=== PATIENT | male | born 1985 ===

== ENCOUNTER 2016-11-21 16:11 | Emergency (ER) | payer OTHER ==
[2016-11-21 16:30] VITALS: PULSE 78; TEMP 98.3
[2016-11-21] MEDS ORDERED: Alum-Mag Hydrox-Simethicone Susp (30 mL) PO STA (17:05)
--- NOTE | 2016-11-21 17:14 | ED PDOC ---
HPI: Abdomen Chief Complaint (Provider): Abdominal Pain History Per: Patient History/Exam Limitations: no limitations Onset/Duration Of Symptoms: Days (1) Outside of [place] travel?: No Current Symptoms Are (Timing): Still Present Severity: Moderate Pain Scale Rating Of: 6 Location Of Pain/Discomfort: Epigastric Quality Of Discomfort: Burning Associated Symptoms: denies: Fever, Chills, Nausea, Vomiting, Diarrhea, Loss Of Appetite, Back Pain, Chest Pain, Constipation, Urinary Symptoms Exacerbating Factors: Food Alleviating Factors: None Last Bowel Movement: Today <Florian Schmidt - Last Filed: 11/21/16 19:30> <Jesica Mak - Last Filed: 11/22/16 17:43> Time Seen by Provider: 11/21/16 16:50 Chief Complaint (Nursing): Abdominal Pain Additional Complaint(s): 31 year old male with no medical history presents to the ED with complaints of epigastric pain. Patient states epigastric pain present since 2 am this morning. Patient states ate calzone and drank a few beers last night. Patient states typically drinks 2-3 beers daily though told nurse 6 pack 3 x/week. Patient took maddie-selzter this morning, without relief. Had chicken soup earlier today, worsened pain. Patient denies fever, chills, diarrhea, nausea, vomiting, back pain, urinary symptoms, changes in diet, recent illness, headache , chest pain, sob, or recent travel. No radiation of pain. Smokes 1/2 ppd. PMD: None (Florian Schmidt) Supervising Attending Note - Supervising Attending Note The Documented history was done by the: [employer]ician [employer] Paralegal, Attending Physician The documented physical exam was done by the: [employer] Paralegal, Attending Physician - Attestation: I have personally seen and examined this patient.: Yes I have fully participated in the care of the patient.: Yes I have reviewed all pertinent clinical information: Yes <Jesica Mak - Last Filed: 11/22/16 17:43> Past Medical History Reviewed: Historical Data, Nursing Documentation, Vital Signs - Medical History PMH: No Chronic Diseases - Surgical History Surgical History: No Surg Hx - Family History Family History: States: No Known Family Hx <Florian Schmidt - Last Filed: 11/21/16 19:30> <MakJesica Lisa - Last Filed: 11/22/16 17:43> Vital Signs: Last Vital Signs Temp 98.3 F 11/21/16 16:28 Pulse 78 11/21/16 16:28 Resp 18 11/21/16 19:06 BP 123/62 11/21/16 19:06 Pulse Ox 100 11/21/16 19:31 - Home Medications Home Medications: Ambulatory Orders Medication Instructions Recorded Cyclobenzaprine [Cyclobenzaprine 10 mg PO HS #10 tab 03/10/16 HCl] Naproxen [Naprosyn] 1 tab PO BID PRN #25 tab 03/10/16 Calcium Carbonate/Simethicone 1 each PO TID PRN #20 tab.chew 11/21/16 [Maalox Advanced Tab Chew] Famotidine [Pepcid] 20 mg PO DAILY #10 tab 11/21/16 - Allergies Allergies/Adverse Reactions: Allergies Allergy/AdvReac Type Severity Reaction Status Date / Time No Known Allergies Allergy Verified 11/21/16 16:28 Review of Systems ROS Statement: Except As Marked, All Systems Reviewed And Found Negative Gastrointestinal: Positive for: Abdominal Pain <Florian Schmidt - Last Filed: 11/21/16 19:30> Physical Exam - Reviewed Nursing Documentation Reviewed: Yes Vital Signs Reviewed: Yes - Physical Exam Appears: Positive for: Well, Non-toxic, No Acute Distress Head Exam: Positive for: ATRAUMATIC, NORMAL INSPECTION, NORMOCEPHALIC Skin: Positive for: Normal Color, Warm, Dry Eye Exam: Positive for: Normal appearance, EOMI, PERRL Neck: Positive for: Normal, Painless ROM, Supple Cardiovascular/Chest: Positive for: Regular Rate, Rhythm Respiratory: Positive for: Normal Breath Sounds Gastrointestinal/Abdominal: Positive for: Bowel Sounds (present), Soft, Tenderness (mild epigastric). Negative for: Organomegaly, Mass, Distended, Guarding, Rebound, Hernia, Asicites Back: Positive for: Normal Inspection. 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 DDx includes but not limited to gastritis, gerd, pancreatitis. Plan: * CBC * CMP * LIPASE * UA * MYLANTA (30ML) * VISCOUS LIDOCAINE 2% (10ML) * PEPCID 40MG * ALCOHOL SERUM * REEVAL Time: 1830 Labs reviewed, unremarkable. Patient re-examined/evaluated much improved, symptom-free. (Florian Schmidt) Disposition - Patient ED Disposition Is Patient to be Admitted: No Counseled Patient/Family Regarding: Studies Performed, Diagnosis, Need For Followup, Rx Given - Disposition Disposition: Routine/Home Disposition Time: 18:23 <Florian Schmdit - Last Filed: 11/21/16 19:30> <Jesica Mak - Last Filed: 11/22/16 17:43> - Clinical Impression Clinical Impression: Gastritis - Disposition Referrals: [facility] [Outside] Condition: STABLE Additional Instructions: Follow up with PMD this week. Return to ED for worsening symptoms. Take medications as prescribed. Prescriptions: Calcium Carbonate/Simethicone [Maalox Advanced Tab Chew] 1 each PO TID PRN #20 tab.chew PRN Reason: Dyspepsia Famotidine [Pepcid] 20 mg PO DAILY #10 tab Instructions: Gastritis (ED), Epigastric Pain (ED) Print Language: SOUTH A[place]
[2016-11-21 17:36] LABS: BASO % 0.4 % (0.0-2.0); EOS # 0.3 K/uL (0.0-0.7); HEMATOCRIT 44.6 % (35.0-51.0); LYMPH # 1.3 K/uL (1.0-4.3); LYMPH % 13.9 % (20.0-40.0); MEAN CELL VOLUME 86.9 fl (80.0-94.0); MEAN CORPUSCULAR HGB CONC 34.6 g/dL (33.0-37.0); MONO # 0.7 K/uL (0.0-0.8); MONO % 7.5 % (0.0-10.0); NEUT # 7.1 K/uL (1.8-7.0); NEUT % 75.2 % (50.0-75.0); NRBC % 0.1 % (0.0-0.0); RED CELL DISTRIBUTION WIDTH 12.3 % (11.5-14.5); WHITE BLOOD COUNT 9.4 K/uL (4.8-10.8)
[2016-11-21 17:45] LABS: ALB/GLOB RATIO 1.6 (1.0-2.1); ALCOHOL SERUM < 10 mg/dl (0-10); ALKALINE PHOSPHATASE 100 U/L (38-126); ALT/SGPT 41 U/L (21-72); AST/SGOT 23 U/L (17-59); BILIRUBIN,TOTAL 0.4 mg/dl (0.2-1.3); BLOOD UREA NITROGEN 12 mg/dl (9-20); CARBON DIOXIDE 28 mmol/L (22-30); CHLORIDE 99 mmol/L (98-107); GFR AFRICAN-AMERICAN > 60; GLUCOSE,RANDOM 117 mg/dL (75-110); LIPASE 62 U/L (23-300); POTASSIUM 4.1 MMOL/L (3.6-5.0); SODIUM 138 mmol/l (132-148); TOTAL PROTEIN 7.8 G/DL (6.3-8.2)
[2016-11-21 18:18] LABS: PARTIAL THROMBOPLASTIN TIME 28.9 SECONDS (23.3-32.5)
[2016-11-21 19:07] VITALS: BP 123/62; RESP 18
[2016-11-21 19:32] VITALS: O2SAT 100
== END 2016-11-21 19:07 | disposition home or self-care (01) ==
LOC: H.ER 16:11
DX: K29.70 Gastritis, unspecified, without bleeding (principal); K85.90 Acute pancreatitis without necrosis or infection, unspecified

== ENCOUNTER 2017-02-27 23:22 | Emergency (ER) | payer SELFPAY ==
[2017-02-27 23:28] VITALS: BP 148/96; PULSE 93; RESP 18; TEMP 98; O2SAT 99
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
--- NOTE | 2017-02-28 10:27 | RAD ---
PROCEDURE: Left Knee Radiographs. HISTORY: Pain. COMPARISON: None. FINDINGS: BONES: Normal. No fracture. JOINTS: Normal. No osteoarthritis. JOINT EFFUSION: Small suprapatellar joint effusion OTHER FINDINGS: None. IMPRESSION: No acute fracture seen. Small suprapatellar joint effusion. If symptoms pain pain persist, occult fracture or soft tissue injury -internal derangement suspected clinically, consider followup MRI
== END 2017-02-28 02:23 | disposition home or self-care (01) ==
LOC: H.ER 23:22
DX: M25.562 Pain in left knee (principal); V19.9XXA Pedal cyclist (driver) (passenger) injured in unspecified traffic accident, initial encounter; Y93.55 Activity, bike riding; Y92.410 Unspecified street and highway as the place of occurrence of the external cause
CPT/HCPCS: 73562; 96372; 99282; J1885